=== PATIENT | male | born 1980 | race Caucasian/White ===

== ENCOUNTER 2016-07-29 21:26 | Emergency (ER) | payer SELFPAY ==
[2016-07-29] MEDS ORDERED: Acetaminophen 500 MG TAB ONE (21:56)
[2016-07-29] MEDS ORDERED: Sodium Chloride 0.9% 1,000 ML ONE (22:25)
[2016-07-29] MEDS ORDERED: Ketorolac Tromethamine 30 MG/ML VIAL ONE (22:25)
[2016-07-29] MEDS ORDERED: cefTRIAXone\\ROCEPHIN 1 GM VIAL ONE (22:25)
[2016-07-29] MEDS ORDERED: Amoxicillin/Potassium Clav 875 MG TAB ONE (22:25)
[2016-07-29] MEDS ORDERED: Sodium Chloride 0.9% 100 ML ONE (22:25)
[2016-07-29 22:45] LABS: ALT (SGPT) 15 U/L (8-55); AST (SGOT) 12 U/L (5-34); Albumin 3.5 g/dL (3.5-5.0); Alkaline Phosphatase 82 U/L (40-150); Anion Gap 16 mmol/L (10-20); BUN (Urea Nitrogen) 6 mg/dL (8.9-20.6); Bilirubin, Total 0.3 mg/dL (0.2-1.2); Calc. Creatinine Clearance 0 mL/min (70-130); Calcium 8.4 mg/dL (7.8-10.44); Carbon Dioxide 27 mmol/L (22-29); Chloride 98 mmol/L (98-107); Estimated GFR-MDRD Greater than 90; Globulin 3.9 g/dL (2.4-3.5); Glucose 120 mg/dL (70-105); Potassium 3.3 mmol/L (3.5-5.1); Protein, Total 7.4 g/dL (6.0-8.3); Sodium 138 mmol/L (136-145)
[2016-07-29 22:52] LABS: Band 3 % (5-11); Eosinophils 3 % (0-10); Hemoglobin 15.1 g/dL (14.0-18.0); Lymphocytes 15 % (21-51); MDiff Complete? YES; Mean Corpuscular HGB CONC 32.3 g/dL (32.0-36.0); Monocytes 7 % (0-10); Neutrophil 67 % (42-75); PLT Morphology Comment Appears Adequate; Platelet Count 180 thou/uL (130-400); RBC Distribution Width 12.2 % (11.5-14.5); RBC Morphology Normal; Reactive Lymphocytes 5 % (0-10); Red Blood Cell (RBC) Count 5.04 mill/uL (4.70-6.10); White Blood Cell (WBC) Count 13.4 thou/uL (4.8-10.8)
[2016-07-29] MEDS ORDERED: Potassium Chloride 20 MEQ TAB ONE (23:01)
[2016-07-29] MEDS ORDERED: Ondansetron HCl/PF 4 MG/2 ML Vial ONE (23:04)
== END 2016-07-29 23:34 | disposition home or self-care (01) ==
LOC: NAV ERS 21:26
DX: H66.92 Otitis media, unspecified, left ear (principal); H60.92 Unspecified otitis externa, left ear; E66.9 Obesity, unspecified; F17.210 Nicotine dependence, cigarettes, uncomplicated; Z79.2 Long term (current) use of antibiotics
CPT/HCPCS: 80053; 85025; 96365; 96375; J0696; J1885; J2270; J2405; J7050

== ENCOUNTER 2016-12-08 23:24 | Emergency (ER) | payer SELFPAY ==
[2016-12-08] MEDS ORDERED: Ketorolac Tromethamine 60 MG/2 ML VIAL ONE (23:56)
== END 2016-12-09 00:32 | disposition home or self-care (01) ==
LOC: NAV ERS 23:24
DX: M75.91 Shoulder lesion, unspecified, right shoulder (principal); E66.9 Obesity, unspecified; F17.210 Nicotine dependence, cigarettes, uncomplicated
CPT/HCPCS: 96372; J1885

== ENCOUNTER 2017-11-15 23:36 | Emergency (ER) | payer SELFPAY ==
[2017-11-15] MEDS ORDERED: Fluorescein Opthalmic Strip ONE (23:44)
[2017-11-16] MEDS ORDERED: Gentamicin 80 MG/2 ML VIAL ONE (00:01)
[2017-11-16] MEDS ORDERED: Gentamicin Ophth Soln 0.3% 5 ml Bottle ONE ×2 (00:02→00:06)
== END 2017-11-16 00:10 | disposition home or self-care (01) ==
LOC: NAV ERS 23:36
DX: S05.02XA Injury of conjunctiva and corneal abrasion without foreign body, left eye, initial encounter (principal); F17.210 Nicotine dependence, cigarettes, uncomplicated; W22.8XXA Striking against or struck by other objects, initial encounter
CPT/HCPCS: 99283; J1580

== ENCOUNTER 2018-10-24 19:09 | Emergency (ER) | payer SELFPAY ==
[2018-10-24] MEDS ORDERED: Amoxicillin/Potassium Clav 875 MG TAB ONE (19:35)
== END 2018-10-24 19:43 | disposition home or self-care (01) ==
LOC: NAV ERS 19:09
DX: H60.23 Malignant otitis externa, bilateral (principal); E66.9 Obesity, unspecified; F17.210 Nicotine dependence, cigarettes, uncomplicated
CPT/HCPCS: 99282

== ENCOUNTER 2019-08-24 13:23 | Emergency (ER) | payer SELFPAY ==
[2019-08-24] MEDS ORDERED: Sodium Chloride 0.9% 1,000 ML ONE ×2 (13:57→15:16)
--- NOTE | 2019-08-24 14:05 | RAD ---
Exam: Chest one view HISTORY:Dyspnea Comparison: 07/04/2017 FINDINGS: Cardiac silhouette: Normal Aorta: Unremarkable Pulmonary vessels: Normal Costophrenic angles: Clear LUNGS: No masses or consolidation. Pneumothorax: None Osseous abnormalities: None IMPRESSION: No acute cardiopulmonary process.
[2019-08-24 14:10] LABS: ALT (SGPT) 15 U/L (8-55); AST (SGOT) 14 U/L (5-34); Acetaminophen Less than 6.0 mcg/mL (10.0-30.0); Albumin 3.7 g/dL (3.5-5.0); Alcohol Less than 10 mg/dL (Less than 10); Alkaline Phosphatase 94 U/L (40-110); Anion Gap 13 mmol/L (10-20); BUN (Urea Nitrogen) 12 mg/dL (8.9-20.6); Bilirubin, Total 0.2 mg/dL (0.2-1.2); CK (CPK) 114 U/L (30-200); Calc. Creatinine Clearance 0 mL/min (70-130); Calcium 8.5 mg/dL (7.8-10.44); Carbon Dioxide 31 mmol/L (22-29); Chloride 99 mmol/L (98-107); Estimated GFR-MDRD Greater than 90; Globulin 3.5 g/dL (2.4-3.5); Glucose 120 mg/dL (70-105); Potassium 3.9 mmol/L (3.5-5.1); Protein, Total 7.2 g/dL (6.0-8.3); Salicylate Less than 8.0 mg/dL (15.0-30.0); Sodium 139 mmol/L (136-145)
[2019-08-24 14:19] LABS: Bilirubin Small (Negative); Blood, Urine Negative (Negative); Clarity Slightly Cloudy (Clear); Glucose, Urine (Dipstick) Negative (Negative); Leukocyte Negative (Negative); Nitrite Negative (Negative); Protein, Urine (Dipstick) Trace mg/dL (Neg-Trace)
[2019-08-24 14:38] LABS: Eosinophils 3 % (0-10); Hemoglobin 14.5 g/dL (14.0-18.0); Lymphocytes 13 % (21-51); MDiff Complete? YES; Macrocytosis SLIGHT = 6-15 cells (100X) (0-5/hpf); Mean Corpuscular HGB CONC 29.8 g/dL (32.0-36.0); Mean Corpuscular Hemoglobin 30.1 pg (27.0-31.0); Mean Platelet Volume 9.8 fL (7.4-10.4); Monocytes 6 % (0-10); Neutrophil 78 % (42-75); Platelet Count 208 thou/uL (130-400); Platelet Morphology Comment Appears Adequate; RBC Distribution Width 14.1 % (11.5-14.5); Red Blood Cell (RBC) Count 4.83 mill/uL (4.70-6.10); White Blood Cell (WBC) Count 11.1 thou/uL (4.8-10.8)
[2019-08-24 14:39] LABS: Amphetamine Not Detected (NotDetected); Barbiturates Screen Not Detected (NotDetected); Benzodiazepine Screen Not Detected (NotDetected); Cocaine Metabolite Screen Not Detected (NotDetected); Medtox Control Line Valid? VALID (VALID); Methadone Not Detected (NotDetected); Methamphetamine Not Detected (NotDetected); Opiate Screen Not Detected (NotDetected); Oxycodone Screen Not Detected (NotDetected); Phencyclidine (PCP) Not Detected (NotDetected); THC/Cannabinoid Screen Not Detected (NotDetected); Tricyclic Screen Not Detected (NotDetected)
--- NOTE | 2019-08-24 17:19 | CT ---
CT Brain WO Con: 08/24/2019 4:39 PM CLINICAL HISTORY: Memory loss and altered mental status. IMAGING TECHNIQUE: Multiple CT images were obtained of the brain without IV contrast. COMPARISON: CT of the brain dated May 07, 2010 FINDINGS: BRAIN: Evidence of infarct: None. Evidence of cranial hemorrhage: None. Evidence of midline shift: Third ventricle and septum pellucidum are midline. Ventricles: Normal. No hydrocephalus. SKULL: Intact. VISUALIZED PARANASAL SINUSES: Clear. MASTOID AIR CELLS: Clear. EXTRACRANIAL SOFT TISSUES: Normal. IMPRESSION: No acute intracranial abnormality.
== END 2019-08-24 17:55 | disposition home or self-care (01) ==
LOC: NAV ERS 13:23
DX: E86.0 Dehydration (principal); G47.9 Sleep disorder, unspecified; F17.210 Nicotine dependence, cigarettes, uncomplicated
CPT/HCPCS: 70450; 71045; 80053; 80306; 80307; 81003; 82550; 84443; 85025; 85379; 93005; 96360; 96361; J7050

== ENCOUNTER 2019-09-17 23:17 | Emergency (ER) | payer OTHER, SELFPAY ==
[2019-09-17] MEDS ORDERED: Ventolin HFA Inhaler 60 PUFF INHALER ONE (23:48)
[2019-09-17 23:53] LABS: #Basophils 0.1 thou/uL (0.0-0.2); #Eosinphils 0.2 thou/uL (0.0-0.7); #Lymphocytes 2.6 thou/uL (1.20-3.40); #Monocytes 0.8 thou/uL (0.11-0.59); #Neutrophils 6.1 thou/uL (1.40-6.50); %Eosinophils 1.7 % (0.0-10.0); %Lymphocytes 26.6 % (21.0-51.0); %Monocytes 7.8 % (0.0-10.0); %Neutrophils 62.9 % (42.0-75.0); Hemoglobin 13.9 g/dL (14.0-18.0); Mean Corpuscular HGB CONC 29.5 g/dL (32.0-36.0); Mean Corpuscular Hemoglobin 30.2 pg (27.0-31.0); Platelet Count 205 thou/uL (130-400); White Blood Cell (WBC) Count 9.7 thou/uL (4.8-10.8)
[2019-09-18 00:06] LABS: ALT (SGPT) 28 U/L (8-55); AST (SGOT) 22 U/L (5-34); Albumin 3.9 g/dL (3.5-5.0); Alkaline Phosphatase 84 U/L (40-110); Anion Gap 14 mmol/L (10-20); BUN (Urea Nitrogen) 13 mg/dL (8.9-20.6); Bilirubin, Total 0.2 mg/dL (0.2-1.2); Calc. Creatinine Clearance 0 mL/min (70-130); Calcium 8.5 mg/dL (7.8-10.44); Carbon Dioxide 32 mmol/L (22-29); Chloride 99 mmol/L (98-107); Estimated GFR-MDRD Greater than 90; Globulin 3.7 g/dL (2.4-3.5); Glucose 133 mg/dL (70-105); Potassium 3.7 mmol/L (3.5-5.1); Protein, Total 7.6 g/dL (6.0-8.3); Sodium 141 mmol/L (136-145)
[2019-09-18] MEDS ORDERED: Dexamethasone 4 mg/ml Vial ONE (00:53)
--- NOTE | 2019-09-18 07:21 | RAD ---
FRONTAL RADIOGRAPH CHEST: Date: 09/17/2019 COMPARISON: 08/24/2019. HISTORY: Shortness of breath. FINDINGS: Heart and mediastinal contours are stable. No pneumothorax, pleural fluid, focal consolidation, or al veolar edema. IMPRESSION: No acute findings. POS: [facility]
== END 2019-09-18 01:40 | disposition short-term general hospital (02) ==
LOC: NAV ERS 23:17
DX: R06.03 Acute respiratory distress (principal); Z20.828 Contact with and (suspected) exposure to other viral communicable diseases; F17.210 Nicotine dependence, cigarettes, uncomplicated; E66.9 Obesity, unspecified
CPT/HCPCS: 71045; 80053; 83605; 83690; 84484; 85025; 85379; 87040; 93005; 94760; 96374; J1100

== ENCOUNTER 2020-11-27 19:29 | Emergency (ER) | payer OTHER, SELFPAY ==
[2020-11-27 20:55] LABS: Calcium 8.3 mg/dL (7.8-10.44); Chloride 95 mmol/L (98-107); Potassium 3.6 mmol/L (3.5-5.1); Sodium 142 mmol/L (136-145)
[2020-11-27 21:01] LABS: Hemoglobin 17.2 g/dL (14.0-18.0); Mean Corpuscular HGB CONC 28.9 g/dL (32.0-36.0); Mean Corpuscular Hemoglobin 30.1 pg (27.0-31.0); Platelet Count 181 thou/uL (130-400); RBC Distribution Width 16.8 % (11.5-14.5); White Blood Cell (WBC) Count 12.2 thou/uL (4.8-10.8)
[2020-11-27 21:14] LABS: ALT (SGPT) 37 U/L (8-55); AST (SGOT) 25 U/L (5-34); Albumin 3.2 g/dL (3.5-5.0); Alkaline Phosphatase 72 U/L (40-110); BUN (Urea Nitrogen) 21 mg/dL (8.9-20.6); Bilirubin, Total 1.2 mg/dL (0.2-1.2); Calc. Creatinine Clearance 0 mL/min (70-130); Carbon Dioxide 35 mmol/L (22-29); Globulin 3.8 g/dL (2.4-3.5); Glucose 100 mg/dL (70-105)
[2020-11-27 21:20] LABS: Anion Gap 16 mmol/L (10-20)
[2020-11-27 21:24] LABS: Band 3 % (5-11); Lymphocytes 18 % (21-51); MDiff Complete? YES; Monocytes 6 % (0-10); Neutrophil 73 % (42-75); Platelet Morphology Comment Appears Adequate; RBC Morphology Normal
== END 2020-11-27 22:20 | disposition home or self-care (01) ==
LOC: NAV ERS 19:29
DX: R14.0 Abdominal distension (gaseous) (principal); G56.03 Carpal tunnel syndrome, bilateral upper limbs; E66.9 Obesity, unspecified; F17.210 Nicotine dependence, cigarettes, uncomplicated
CPT/HCPCS: 71045; 80053; 83880; 84484; 85025; 93005; 94760; 99406